=== PATIENT | male | born 1970 | race Caucasian/White ===

== ENCOUNTER 2020-07-02 09:40 | Day surgery (SDC) | payer BC, OTHER ==
[~2020-07-02] VITALS: Ht 180.3 cm; Wt 68.6 kg
[2020-07-02] MEDS ORDERED: NONE PER PT (10:24)
[2020-07-02] MEDS ORDERED: CHLORHEXIDINE 15 ML UDC PO ONE (10:30)
[2020-07-02 10:45] VITALS: BP 120/75
[2020-07-02] MEDS ORDERED: LACTATED RINGERS 1,000 ML IV SCH (11:00)
[2020-07-02] MEDS ORDERED: PROPOFOL 10 MG/ML, 20ML ONE (11:30)
[2020-07-02] MEDS ORDERED: CEFAZOLIN 1,000 MG ONE (11:30)
[2020-07-02] MEDS ORDERED: FENTANYL PF 250 MCG/5ML ONE (11:32)
[2020-07-02] MEDS ORDERED: MIDAZOLAM 1 MG/ML, 2ML ONE (11:32)
[2020-07-02] MEDS ORDERED: MEPERIDINE/PF 25MG/0.5ML IVPush PRN (12:00)
[2020-07-02] MEDS ORDERED: ACETAMINOPHEN 325 MG TABLET PO PRN (12:00)
[2020-07-02] MEDS ORDERED: PROMETHAZINE 25 MG/ML, 1ML IVPush PRN (12:00)
[2020-07-02] MEDS ORDERED: DIAZEPAM 5 MG/ML, 2ML IVPush PRN (12:00)
[2020-07-02] MEDS ORDERED: OXYcodone 5 MG/5 ML ORAL.SOL UDC PO PRN (12:00)
[2020-07-02] MEDS ORDERED: HYDROmorphone 1 MG/ML, 1ML INJ IVPush PRN (12:00)
[2020-07-02] MEDS ORDERED: ONDANSETRON 2MG/ML, 2ML IVPush PRN (12:00)
[2020-07-02] MEDS ORDERED: KETOROLAC 30 MG/1 ML IVPush PRN (12:00)
[2020-07-02] MEDS ORDERED: HYDROcodone/APAP 7.5-325MG/15ML UDC ONE (12:14)
[2020-07-02] MEDS ORDERED: FENTANYL PF 100 MCG/2ML ONE (12:25)
[2020-07-02] MEDS: FENTANYL PF 100 MCG/2ML IV PRN ×2 (12:27→12:35)
[2020-07-02] MEDS ORDERED: HYDROcodone/APAP 7.5-325MG/15ML UDC PO PRN (12:30)
== END 2020-07-02 16:15 | disposition home or self-care (01) ==
LOC: OUT 09:40
PROVIDERS: ATTEND Orthopaedic Surgery
DX: T84.84XA Pain due to internal orthopedic prosthetic devices, implants and grafts, initial encounter (principal); Z20.822 Contact with and (suspected) exposure to COVID-19; Z79.899 Other long term (current) drug therapy; Y83.8 Other surgical procedures as the cause of abnormal reaction of the patient, or of later complication, without mention of misadventure at the time of the procedure
CPT/HCPCS: 20680; 73501; 87635; J0690; J2250; J2704; J3010; J7120; 76000